=== PATIENT | male | born 1970 | race Caucasian/White ===

== ENCOUNTER 2018-11-27 23:26 | Inpatient (IN) | payer SELFPAY ==
[2018-11-28 00:03] LABS: #Eosinphils 0.1 thou/uL (0.0-0.7); #Lymphocytes 3.1 thou/uL (1.20-3.40); #Monocytes 0.5 thou/uL (0.11-0.59); #Neutrophils 5.5 thou/uL (1.40-6.50); %Basophils 0.4 % (0.0-1.0); %Eosinophils 1.3 % (0.0-10.0); %Lymphocytes 33.6 % (21.0-51.0); %Monocytes 5.8 % (0.0-10.0); %Neutrophils 58.9 % (42.0-75.0); Hemoglobin 9.1 g/dL (14.0-18.0); Mean Corpuscular Hemoglobin 33.5 pg (27.0-31.0); Mean Corpuscular Volume 98.6 fL (78.0-98.0); Mean Platelet Volume 7.6 fL (7.4-10.4); Platelet Count 205 thou/uL (130-400); RBC Distribution Width 11.3 % (11.5-14.5); Red Blood Cell (RBC) Count 2.72 mill/uL (4.70-6.10); White Blood Cell (WBC) Count 9.3 thou/uL (4.8-10.8)
[2018-11-28] MEDS ORDERED: Pantoprazole 40 MG VIAL ONE (00:11)
[2018-11-28 00:14] LABS: INR-International Normal Ratio 1.2; Prothrombin Time 14.8 SEC (12.0-14.7)
[2018-11-28 00:16] LABS: PTT 21.4 SEC (22.9-36.1)
[2018-11-28 00:25] LABS: ALT (SGPT) 11 U/L (8-55); AST (SGOT) 12 U/L (5-34); Albumin 3.4 g/dL (3.5-5.0); Alkaline Phosphatase 42 U/L (40-150); Anion Gap 10 mmol/L (10-20); BUN (Urea Nitrogen) 54 mg/dL (8.9-20.6); Bilirubin, Total 0.5 mg/dL (0.2-1.2); Calc. Creatinine Clearance 0 mL/min (70-130); Calcium 7.9 mg/dL (7.8-10.44); Carbon Dioxide 21 mmol/L (22-29); Chloride 111 mmol/L (98-107); Estimated GFR-MDRD Greater than 90; Globulin 1.7 g/dL (2.4-3.5); Glucose 132 mg/dL (70-105); Iron 180 ug/dL (65-175); Iron Binding Capacity, Total 288 mcg/dL (261-462); Protein, Total 5.1 g/dL (6.0-8.3); Sodium 138 mmol/L (136-145)
[2018-11-28] MEDS ORDERED: Pantoprazole 80 MG, Admixture Fee 1 EACH in Sodium Chloride 0.9% 100 ML IVP SCH (00:30)
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
[2018-11-28 02:53] VITALS: BMI 24.2
[2018-11-28] MEDS: Lactated Ringer's 1,000 ML IV SCH ×3 (03:12→23:23)
[2018-11-28] MEDS: Nicotine 21 MG PATCH TD SCH (03:13)
[2018-11-28 04:37] LABS: #Basophils 0.1 thou/uL (0.0-0.2); #Eosinphils 0.1 thou/uL (0.0-0.7); #Lymphocytes 3.1 thou/uL (1.20-3.40); #Monocytes 0.6 thou/uL (0.11-0.59); #Neutrophils 6.6 thou/uL (1.40-6.50); %Basophils 0.5 % (0.0-1.0); %Eosinophils 0.8 % (0.0-10.0); %Lymphocytes 29.9 % (21.0-51.0); %Monocytes 5.4 % (0.0-10.0); %Neutrophils 63.4 % (42.0-75.0); Hemoglobin 8.3 g/dL (14.0-18.0); Mean Corpuscular Hemoglobin 33.5 pg (27.0-31.0); Mean Corpuscular Volume 98.5 fL (78.0-98.0); Mean Platelet Volume 7.5 fL (7.4-10.4); Platelet Count 187 thou/uL (130-400); RBC Distribution Width 11.4 % (11.5-14.5); Red Blood Cell (RBC) Count 2.47 mill/uL (4.70-6.10); White Blood Cell (WBC) Count 10.4 thou/uL (4.8-10.8)
[2018-11-28 04:57] LABS: Anion Gap 10 mmol/L (10-20); BUN (Urea Nitrogen) 36 mg/dL (8.9-20.6); Calc. Creatinine Clearance 133 mL/min (70-130); Calcium 7.9 mg/dL (7.8-10.44); Carbon Dioxide 19 mmol/L (22-29); Chloride 113 mmol/L (98-107); Estimated GFR-MDRD Greater than 90; Glucose 103 mg/dL (70-105); Potassium 4.1 mmol/L (3.5-5.1); Sodium 138 mmol/L (136-145)
[2018-11-28 07:53] LABS: Platelet Count 175 thou/uL (130-400)
[2018-11-28] MEDS ORDERED: Octreotide Acetate 100 MCG/ML VIAL SLOW IVP ONE (09:10)
[2018-11-28] MEDS ORDERED: Octreotide Acetate 1,250 MCG in Sodium Chloride 0.9% 250 ML 250 ML IVPB SCH (09:15)
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
--- NOTE | 2018-11-28 12:38 | OP ---
DATE OF PROCEDURE: 11/28/2018 PROCEDURES PERFORMED: Esophagogastroduodenoscopy with biopsy. PREOPERATIVE DIAGNOSES: Upper gastrointestinal bleed and anemia of acute blood loss. DESCRIPTION OF PROCEDURE: Informed consent was obtained from the patient. He was sedated with total intravenous anesthesia. The bite block was placed and the endoscope was advanced easily to the second portion of the duodenum and retroflexion was performed in the stomach. The esophagus was normal. The GE junction was normal. The stomach had severe erosive gastritis in the antrum with 2 ulcers measuring around 7 mm. Retroflex views in the stomach were normal. The pylorus was normal. There was severe erosive duodenitis in the first portion of the duodenum. Second portion of the duodenum was normal. There were no stigmata of recent bleeding. IMPRESSION: 1. Severe erosive gastritis with two 7 mm antral ulcers without stigmata of recent bleeding. 2. Severe erosive duodenitis in the bulb of the duodenum. 3. Otherwise normal esophagogastroduodenoscopy. There were no varices. RECOMMENDATIONS: 1. Advance diet. 2. Change to oral Protonix. 3. Discontinue octreotide. 4. Stop NSAIDs. 5. Await histopathology. 6. Check hemoglobin in the morning. 7. Stop alcohol and stop smoking. Job ID: [id number]
[2018-11-28 15:00] LABS: HBSAB Concentration 0.99 mIU/mL; HBSAg Index 0.19 S/CO (0-0.99); Hep B Core Total Ab Non-Reactive (NonReactive); Hep B Core Total Index 0.06 S/CO (0-0.79); Hep B Surf AB Non-Reactive (NonReactive); Hep B Surf Ag Non-Reactive S/CO (NonReactive); Hep C IgG Ab Non-Reactive (NonReactive); Hep C Index 0.03 S/CO (0-0.79)
[2018-11-28] MEDS ORDERED: Lidocaine 1% PF 5 ML VIAL ONE (15:52)
[2018-11-28] MEDS ORDERED: PROPOFOL 200 MG/20 ML VIAL ONE (15:52)
[2018-11-28] MEDS ORDERED: Sodium Chloride 3% 100 ML IVPB SCH (17:15)
[2018-11-29] MEDS: Nicotine 21 MG PATCH TD SCH (01:47)
[2018-11-29] MEDS: Lactated Ringer's 1,000 ML IV SCH (01:49)
--- NOTE | 2018-11-29 06:37 | PDOC.FM ---
- Subjective Subjective: Pt reports doing well this morning. Reports having 3 BM. Denies any black tarry stools. Denies any chest pain or SOB. Denies any headaches, lightheadness, or dizziness at this time. Denies any n/v/d/c. Pt denies any acute events overnight. - Objective MAR Reviewed: Yes Vital Signs & Weight: Vital Signs (12 hours) Temp Pulse Resp BP BP Pulse Ox 11/29/18 05:00 98.6 F 95 17 102/68 98 11/29/18 01:00 98.5 F 85 17 97/66 97/66 96 11/28/18 20:20 98.7 F 70 18 97/65 97/65 93 L Weight Weight 74.446 kg I&O: 11/27/18 11/28/18 11/29/18 06:59 06:59 06:59 Intake Total 400 3090 Output Total 350 Balance 50 3090 Result Diagrams: 11/29/18 07:06 11/28/18 04:11 Phys Exam - Physical Examination Constitutional: NAD HEENT: PERRLA, moist MMs Neck: no nodes, supple, full ROM Respiratory: no wheezing, no rales, no rhonchi, clear to auscultation bilateral Cardiovascular: no significant murmur, no rub Gastrointestinal: soft, non-tender, no distention, positive bowel sounds Musculoskeletal: no edema, pulses present Neurological: non-focal, normal sensation, moves all 4 limbs Psychiatric: normal affect Skin: no rash, normal turgor, cap refill <2 seconds Dx/Plan (1) Gastric ulcer Code(s): K25.9 - GASTRIC ULCER, UNSP ACUTE OR CHRONIC, W/O HEMOR OR PERF Status: Acute (2) Gastritis Code(s): K29.70 - GASTRITIS, UNSPECIFIED, WITHOUT BLEEDING Status: Acute (3) Upper GI bleed Code(s): K92.2 - GASTROINTESTINAL HEMORRHAGE, UNSPECIFIED Status: Acute (4) Alcohol abuse Code(s): F10.10 - ALCOHOL ABUSE, UNCOMPLICATED Status: Acute (5) HTN (hypertension) Code(s): I10 - ESSENTIAL (PRIMARY) HYPERTENSION Status: Acute - Plan Plan: 1. GI bleed 2/2 Gastritis and Antral Ulcers - Trend H&H. Pt denies any new bloody stools - GI consulted- Follow recs. Await pathology of bx from EGD -started on protonix - Suspect related to chronic NSAID use (prior BC powder and now 1200mg Advil daily) 2. ETOH abuse - ASE protocol - Monitor closely for withdrawal - Possibly underlying cirrhosis with history + spider angiomata on exam -Hep panel negative. 3. Tobacco abuse - Nicotine patch, cessation education 4. HTN - Hold at this time. BP stable 5. Chronic pain - Will likely D/C nsaids for pain management. will switch to tylenol Addendum - Attending - Attending Attestation Date/Time: 11/29/18 6206 I personally evaluated the patient and discussed the management with Dr. José. I agree with the History, Examination, Assessment and Plan documented above with any addition or exceptions noted below. Patient doing well. No abdominal pain, tolerated diet ok, and no further melena/ hematochezia. EGD showed gastric and duodenal ulcer disease, likely NSAID related. Pathology pending. Advance diet and possible discharge today with Protonix and restrictions against NSAIDs if clear from GI standpoint. H/H stable and uptrending.
[2018-11-29 07:15] LABS: #Eosinphils 0.2 thou/uL (0.0-0.7); #Lymphocytes 2.6 thou/uL (1.20-3.40); #Monocytes 0.5 thou/uL (0.11-0.59); #Neutrophils 6.2 thou/uL (1.40-6.50); %Basophils 0.4 % (0.0-1.0); %Monocytes 5.5 % (0.0-10.0); %Neutrophils 65.2 % (42.0-75.0); Hemoglobin 8.7 g/dL (14.0-18.0); Mean Corpuscular HGB CONC 33.9 g/dL (32.0-36.0); Mean Corpuscular Hemoglobin 33.2 pg (27.0-31.0); Mean Corpuscular Volume 97.9 fL (78.0-98.0); Mean Platelet Volume 7.3 fL (7.4-10.4); Platelet Count 192 thou/uL (130-400); RBC Distribution Width 12.1 % (11.5-14.5); Red Blood Cell (RBC) Count 2.61 mill/uL (4.70-6.10); White Blood Cell (WBC) Count 9.6 thou/uL (4.8-10.8)
[2018-11-29 07:35] VITALS: BP 103/71; TEMP 98.1
--- NOTE | 2018-11-30 11:58 | DIS ---
DATE OF ADMISSION: 11/28/2018 DATE OF DISCHARGE: 11/29/2018 RESIDENT: Adolfo José MD, PGY-2. CONSULTS: Include GI, Dr. Constantin Coppola with Gastroenterology. OPERATIONS: 1. He had an upper endoscopy, EGD which showed severe erosive gastritis with two 7 mm antral ulcers without stigmata of recent bleeding. 2. Severe erosive duodenitis in the bulb of the duodenum. 3. Otherwise normal EGD. No varices. They also took pathology, which ended up showing reactive gastropathy. No Helicobacter pylori organisms identified. IMAGING: No imaging. DISCHARGE DIAGNOSES: Include: 1. Gastrointestinal bleed, secondary to gastritis and antral ulcers. 2. Alcohol abuse. 3. Tobacco abuse. 4. Hypertension. 5. Osteoarthritis. DISCHARGE MEDICATIONS: Medications discontinued was meloxicam. Continued medications include: 1. Protonix 40 mg p.o. b.i.d. 2. Norvasc 5 mg p.o. daily. 3. Celexa 40 mg at bedtime. 4. Zanaflex 4 mg p.o. at bedtime. HISTORY OF PRESENT ILLNESS/BRIEF HOSPITAL COURSE: This is a 48-year-old male with past medical history of chronic neck and back pain. He was taking Advil daily on top of his meloxicam. He came in when he had been feeling nauseous and poorly all day. He went to go to the bathroom and heard a thump in the bathroom, found him passed out in the bathroom and found a lot of black stool everywhere. At this time, they called 911. When he got here, his vital signs, blood pressure was stable, heart rate was 108, pulse ox 98% on room air. This time, his hemoglobin was 9.1. Fecal occult blood was negative, but the rectal exam had significant melena in his stool. We continued to trend his labs to drop down to 8.3 and then to 8.0. Family consulted GI with concern for upper GI bleed. At that time, they did a scope and findings found above. We believe this gastritis was due to him taking Advil and meloxicam, also due to his alcohol and smoking abuse. We counseled him on his alcohol and smoking abuse. We also did a hepatitis panel, which showed hepatitis A antibody total which was positive, likely due to prior infection or immunization. No other significant findings. We kept the patient overnight. Hemoglobin trended up to 8.7. He was transfused 1 unit of blood prior to the EGD. The patient would tolerate p.o., was up walking around, never got dizzy or headaches. So, finally, he was discharged on the . DISPOSITION: Stable. DISCHARGE LOCATION: Home. ACTIVITY: As tolerated. DIET: Regular diet. FOLLOWUP: He will follow up with primary care provider within 3 days for repeat CBC and blood followup discussed with the patient. Job ID: [id number]
== END 2018-11-29 17:32 | disposition home or self-care (01) | DRG 378 ==
LOC: ERS 23:26 → T4-A 11-28 01:10
PROVIDERS: ADMIT Student in an Organized Health Care Education/Training Program; ATTEND Student in an Organized Health Care Education/Training Program
PROC: 0DB68ZX Excision of Stomach, Via Natural or Artificial Opening Endoscopic, Diagnostic (ICD-10-PCS; principal; 2018-11-28)
DX: K25.4 Chronic or unspecified gastric ulcer with hemorrhage (principal); D62 Acute posthemorrhagic anemia; K29.71 Gastritis, unspecified, with bleeding; I10 Essential (primary) hypertension; E78.5 Hyperlipidemia, unspecified; G89.29 Other chronic pain; M54.2 Cervicalgia; M54.9 Dorsalgia, unspecified; F17.210 Nicotine dependence, cigarettes, uncomplicated; F10.10 Alcohol abuse, uncomplicated; K29.80 Duodenitis without bleeding; T39.395A Adverse effect of other nonsteroidal anti-inflammatory drugs [NSAID], initial encounter; Z71.41 Alcohol abuse counseling and surveillance of alcoholic; Z71.6 Tobacco abuse counseling
CPT/HCPCS: 36415; 36430; 80048; 80053; 82274; 82728; 83540; 83550; 85025; 85610; 85730; 86704; 86706; 86708; 86803; 86850; 86900; 86901; 87340; 88305; 88312; 93005; 96361; 96365; 96374; C9113; J2001; J2354; J2704; J7050; J7131; P9016